=== PATIENT | female | born 1955 | race Caucasian/White ===

== ENCOUNTER → 2016-07-07 | Outpatient (CLI) | payer OTHER ==
[~2016-07-07] MED LIST: AMIT10TA6 PO; CALC1TAB9 PO; COEN100C7 PO; HYDR25TA4 PO; IBUP-1050 PO; MAGN250T3 PO; MULT-845 PO; VITAMIN D3 PO
== END | disposition home or self-care (01) ==
LOC: C.PAPS 13:09
PROVIDERS: ATTEND Obstetrics & Gynecology
DX: Z01.419 Encounter for gynecological examination (general) (routine) without abnormal findings (principal)

== ENCOUNTER → 2016-07-27 | Outpatient (CLI) | payer OTHER ==
[2016-07-27 09:55] LABS: CALCIUM URINE 10.9 mg/dl
[2016-07-27 10:01] LABS: CREATININE 0.54 mg/dl (0.60-1.20)
== END | disposition home or self-care (01) ==
LOC: C.LAB1850 08:34
PROVIDERS: ATTEND Family Medicine
DX: M81.0 Age-related osteoporosis without current pathological fracture (principal); E83.52 Hypercalcemia

== ENCOUNTER → 2016-11-04 | Outpatient (CLI) | payer OTHER | END | disposition home or self-care (01) | LOC: C.LAB1850 08:45 | PROVIDERS: ATTEND Internal Medicine Rheumatology | DX: M81.0 Age-related osteoporosis without current pathological fracture (principal); E55.9 Vitamin D deficiency, unspecified; E83.52 Hypercalcemia ==

== ENCOUNTER → 2016-12-29 | Outpatient (CLI) | payer OTHER ==
--- NOTE | 2016-12-29 10:46 | DIAGNOSTIC IMAGING REPORT ---
RIGHT HAND MIN 3 VIEWS ROUTINE, LEFT HAND MIN 3 VIEWS ROUTINE HISTORY: 61 years-old Female M79.641 Bilateral hand pain without reported trauma. COMPARISON: None available TECHNIQUE: 3 views of the bilateral hands. FINDINGS: RIGHT HAND: No acute fracture or dislocation. There is a 2 mm bone fragment noted along the radial aspect of the first metacarpal head suspicious for age-indeterminate avulsion injury. Mild interphalangeal, first carpometacarpal and triscaphe degenerative changes are present. No erosive arthropathy. Negative for radiopaque foreign body. Bones are mildly demineralized. LEFT HAND: There is no acute fracture or dislocation. Mild triscaphe and first carpometacarpal degenerative changes are noted. Moderate degenerative changes are seen throughout the interphalangeal joints, notably the PIP joints. Soft tissues are unremarkable. IMPRESSION: 1. No acute fracture or dislocation of either hand. 2. 2 mm bone fragment adjacent to the radial aspect of the first metacarpal head suspicious for age-indeterminate avulsion injury or accessory ossicle without associated soft tissue swelling. Correlate with point tenderness. 3. Degenerative changes of the bilateral hands, most pronounced within the left PIP joints. The above report was generated using voice recognition software. It may contain grammatical, syntax or spelling errors. Electronically signed by: David Robin M.D. 12/29/2016 10:45 AM Dictated Date/Time: 12/29/2016 10:38 AM
[2016-12-29 12:16] LABS: RHEUMATOID FACTOR < 10.0 U/mL (0-15); TOTAL IRON BINDING CAPACITY 309 mcg/dl (250-450)
[2016-12-29 12:39] LABS: URINE APPEARANCE CLEAR (CLEAR); URINE BILIRUBIN NEG (NEG); URINE COLOR YELLOW; URINE EPITHELIAL CELL AUTO 0-5 /lpf (0-5); URINE NITRITE NEG (NEG); URINE SPECIFIC GRAVITY 1.013 (1.000-1.030); UROBILINOGEN NEG (NEG)
[2016-12-29 12:45] LABS: MANUAL MICROSCOPIC REQUIRED? NO; REVIEW REQ? NO
[2017-01-02 06:39] LABS: ANTI-CENTROMERE AB <1.0 NEG AI (<1.0 NEG); ANTI-SS-A <1.0 NEG AI (<1.0 NEG); ANTI-SS-B <1.0 NEG AI (<1.0 NEG); DNA ds CRITHIDIA NEGATIVE (NEGATIVE); Sm Antibody <1.0 NEG AI (<1.0 NEG)
== END | disposition home or self-care (01) ==
LOC: C.RAD1850 10:22
PROVIDERS: ATTEND Internal Medicine Rheumatology
DX: M79.641 Pain in right hand (principal); M79.642 Pain in left hand; R21 Rash and other nonspecific skin eruption

== ENCOUNTER → 2017-04-06 | Outpatient (CLI) | payer OTHER ==
--- NOTE | 2017-04-06 15:09 | MAMMOGRAPHY REPORT ---
BILATERAL DIGITAL SCREENING MAMMOGRAM TOMOSYNTHESIS WITH CAD: 04/06/2017 CLINICAL HISTORY: Routine screening. Patient has no complaints. TECHNIQUE: Breast tomosynthesis in addition to standard 2D mammography was performed. Current study was also evaluated with a Computer Aided Detection (CAD) system. COMPARISON: Comparison is made to exams dated: 03/31/2016 mammogram, 03/26/2015 mammogram, 4 mammogram, 03/16/2013 mammogram, 03/10/2012 mammogram, and 01/27/2011 mammogram - [facility]. BREAST COMPOSITION: The tissue of both breasts is extremely dense, which lowers the sensitivity of m ammography. FINDINGS: There are mild vascular calcifications in both breasts. No suspicious mass, architectural distortion or cluster of microcalcifications is seen. IMPRESSION: ACR BI-RADS CATEGORY 2: BENIGN There is no mammographic evidence of malignancy. A 1 year screening mammogram is recommended. The pa tient will receive written notification of the results. Approximately 10% of breast cancers are not detected with mammography. A negative mammographic report should not delay biopsy if a clinically suggestive mass is present. Kelsey Ramesh M.D. ay/:04/06/2017 08:50:41 Process Server: Sonja EARL(Carla)(Shanta)(BD), [facility] letter sent: Normal 1/2 BI-RADS Code: ACR BI-RADS Category 2: Benign
== END | disposition home or self-care (01) ==
LOC: C.MAMM 08:05
PROVIDERS: ATTEND Obstetrics & Gynecology
DX: Z12.31 Encounter for screening mammogram for malignant neoplasm of breast (principal)

== ENCOUNTER → 2017-06-21 | Outpatient (CLI) | payer OTHER ==
[2017-06-21 09:32] LABS: CALCIUM 9.7 mg/dl (8.5-10.1)
== END | disposition home or self-care (01) ==
LOC: C.LAB1850 08:06
PROVIDERS: ATTEND Internal Medicine
DX: Z11.59 Encounter for screening for other viral diseases (principal); M81.0 Age-related osteoporosis without current pathological fracture; R21 Rash and other nonspecific skin eruption; M15.4 Erosive (osteo)arthritis; R79.0 Abnormal level of blood mineral

== ENCOUNTER → 2017-07-30 | Outpatient (CLI) | payer OTHER | END | disposition home or self-care (01) | LOC: C.PAPS 11:28 | PROVIDERS: ATTEND Obstetrics & Gynecology | DX: Z12.4 Encounter for screening for malignant neoplasm of cervix (principal) ==

== ENCOUNTER → 2017-08-26 | Outpatient (CLI) | payer OTHER ==
[2017-08-26 09:35] LABS: BASO % 0.5 %; BASO ABS # 0.03 K/uL (0-0.2); EOS ABS # 0.18 K/uL (0-0.5); HEMATOCRIT 40.4 % (37-47); HEMOGLOBIN 13.4 g/dL (12.0-16.0); IG# 0.01 K/uL (0.00-0.02); LYMPH % 23.5 %; MEAN CELL VOLUME 94.2 fL (80-100); MEAN CORPUSCULAR HEMOGLOBIN 31.2 pg (25-34); MEAN CORPUSCULAR HGB CONC 33.2 g/dl (32-36); MEAN PLATELET VOLUME 10.2 fL (7.4-10.4); MONO % 9.6 %; MONO ABS # 0.57 K/uL (0.11-0.59); NEUT % 63.2 %; NEUT ABS # 3.76 K/uL (1.4-6.5); PLATELET COUNT 245 K/uL (130-400); RED CELL DISTRIBUTION WIDTH CV 13.2 % (11.5-14.5); RED CELL DISTRIBUTION WIDTH SD 45.7 fL (36.4-46.3); WHITE BLOOD COUNT 5.95 K/uL (4.8-10.8)
[2017-08-26 10:09] LABS: HEMOGLOBIN A1C 5.8 % (4.5-5.6)
[2017-08-26 10:12] LABS: ALBUMIN 3.8 gm/dl (3.4-5.0); ALT/SGPT 39 U/L (12-78); AST/SGOT 31 U/L (15-37); BLOOD UREA NITROGEN 13 mg/dl (7-18); CALCIUM 9.2 mg/dl (8.5-10.1); CARBON DIOXIDE 32 mmol/L (21-32); CREATININE 0.52 mg/dl (0.60-1.20); GLUCOSE 103 mg/dl (70-99); POTASSIUM 3.5 mmol/L (3.5-5.1); SODIUM 138 mmol/L (136-145)
[2017-08-26 10:20] LABS: ALKALINE PHOSPHATASE 124 U/L (45-117); CHOLESTEROL 181 mg/dl (0-200); LDL CHOLESTEROL CALCULATED 77 mg/dl; TOTAL PROTEIN 7.1 gm/dl (6.4-8.2)
== END | disposition home or self-care (01) ==
LOC: C.LAB1850 08:09
PROVIDERS: ATTEND Internal Medicine
DX: R73.03 Prediabetes (principal); R63.4 Abnormal weight loss; R74.0 Nonspecific elevation of levels of transaminase and lactic acid dehydrogenase [LDH]; I10 Essential (primary) hypertension; R79.0 Abnormal level of blood mineral

== ENCOUNTER → 2017-09-06 | Outpatient (CLI) | payer OTHER ==
--- NOTE | 2017-09-06 16:28 | DIAGNOSTIC IMAGING REPORT ---
R FOOT MIN 3 VIEWS ROUTINE CLINICAL HISTORY: M79.673 pain. Edema. COMPARISON: None. DISCUSSION: The bones and joint spaces appear intact. There is no evidence of fracture, dislocation or bony disease. There is no evidence for soft tissue swelling. IMPRESSION: Negative study. The above report was generated using voice recognition software. It may contain grammatical, syntax or spelling errors. Electronically signed by: Homer Nicole M.D. 09/06/2017 4:26 PM Dictated Date/Time: 09/06/2017 4:25 PM
== END | disposition home or self-care (01) ==
LOC: C.LAB1850 15:36
PROVIDERS: ATTEND Physician Assistant
DX: M79.673 Pain in unspecified foot (principal)